=== PATIENT | female | born 1980 | race Two or more races ===

== ENCOUNTER 2017-03-20 22:08 | Emergency (ER) | payer OTHER ==
--- NOTE | 2017-03-20 22:11 | EDPHY ---
H & P HPI/ROS: HPI CHIEF COMPLAINT: Dizziness, lightheadedness, numbness tingling in hands and around mouth HISTORY OF PRESENT ILLNESS: This patient is a 36-year-old female she is otherwise healthy she does not take any daily medications she presents emergency room by ambulance stating that she felt dizzy. It is improved since this started approximately over 3 hours ago or 7:30 p.m. Patient states she was getting ready to go to the movies this evening and she was running around the house she is putting on makeup she started feel little dizzy. She describes as room spinning. She also endorses some lightheadedness. She also noticed some numbness and tingling in her bilateral hands and around her mouth. Denies any chest pain. Denies shortness of breath. Did have nausea with this as well. No diaphoresis. She states since arriving to the emergency room she is feeling better. She denies syncope. Denies chest pain. Past Medical History: No significant medical Past Surgical History: No significant surgical history Social History: Denies daily use of drugs alcohol tobacco. Family History: Contributory ROS REVIEW OF SYSTEMS: A comprehensive 10 point review of systems is otherwise negative aside from elements mentioned in the history of present illness. Exam Constitutional appears well nontoxic, triage nursing summary reviewed, vital signs reviewed, awake/alert. Eyes normal conjunctivae and sclera, EOMI, PERRLA. HENT normal inspection, atraumatic, moist mucus membranes, no epistaxis, neck supple/ no meningismus, no raccoon eyes. Respiratory clear to auscultation bilaterally, normal breath sounds, no respiratory distress, no wheezing. Cardiovascular rate normal, regular rhythm, no murmur, no edema, distal pulses normal. Gastrointestinal soft, non-tender, no rebound, no guarding, normal bowel sounds, no distension, no pulsatile mass. Genitourinary no CVA tenderness. Musculoskeletal no midline vertebral tenderness, full range of motion, no calf swelling, no tenderness of extremities, no meningismus, good pulses, neurovascularly intact. Skin pink, warm, & dry, no rash, skin atraumatic. Neurologic normal neurological exam no focal neuro deficit on exam, awake, alert and oriented x 3, AAOx3, moves all 4 extremities equally, motor intact, sensory intact, CN II-XII intact, normal cerebellar, normal vision, normal speech. Psychiatric normal mood/affect. Heme/Lymph/Immune no lymphadenopathy. Differential Diagnosis: Includes but is not limited to in a particular order, cardiac arrhythmia, cardiac ischemia, dehydration, electrolyte disturbance, infection, vertigo, stroke Medical Decision Making: Plan for this patient full quality assurance monitor final, EKG, IV establishment, blood draw, x-ray, vital signs gentle IV hydration, check electrolytes, urinalysis, TSH, chest x-ray. Re-evaluation: EKG interpretation by me on record in [employer] system. Impression time of EKG 2233, sinus rhythm rate of 65 I am nonspecific T-wave abnormalities in V1 V2 V3. Otherwise I do not appreciate acute ischemic change. 224: Patient ambulated to the bathroom was extremely dizzy. [place] off balance. I did re-evaluate her at this time she is feeling better. CT scan of the head without contrast and angiogram head and neck with IV contrast for acute dizziness The results of the study are negative for thrombus , dissection. Negative scans.. The study was read by Dr. Barroso I viewed the images myself on the PACS system. EKG interpretation by me on record in [employer] system. Impression this is a repeat EKG time of EKG 0021 T-wave abnormality noted V1 V2. Less so in V3. Otherwise unremarkable EKG. Similar to previous EKG. 1225: Patient is up ambulating to the bathroom with a steady gait. She feels much better after IV fluids meclizine and Valium. She has no chest pain or shortness of breath/ 0115: Repeat troponin negative. 0120: I did re-evaluate this patient this time. Resting comfortably no acute distress. Patient is feeling much better she denies any dizziness lightheadedness shortness of breath or chest pain. She would like to go home I feel this is reasonable. Return precautions given. Source: Patient, EMS - Personal History Tetanus Vaccine Date: 03/13 - Medical/Surgical History Other PMH: pt had complication after at IV site, pt had 2014 - Social History Smoking Status: Former smoker Constitutional: Initial Vital Signs Temperature (C) 36.8 C 03/20/17 22:30 Heart Rate 60 03/20/17 22:30 Respiratory Rate 16 03/20/17 22:30 Blood Pressure 120/75 03/20/17 22:30 O2 Sat (%) 96 03/20/17 22:30 O2 Delivery Mode Room Air Allergies/Adverse Reactions: No Known Allergies Allergy (Verified 03/20/17 22:36) Home Medications: Medication Instructions Recorded 1 tab PO DAILY 06/27/13 IRON 1 tab PO DAILY 03/04/16 Ibuprofen [Motrin (*)] 600 mg PO Q6HRS PRN #30 tab 03/06/16 Meclizine HCl [Meclizine HCl 25 mg 25 mg PO BID #10 tab 03/21/17 (RX,OTC)] Medical Decision Making - Diagnostics Imaging Results: Imaging Impressions Chest X-Ray 03/20/17 22:16 Impression: No acute findings in the chest. Head CT 03/20/17 22:41 Impression: No acute intracranial findings. Findings discussed with Cash Wilkes MD 03/20/2017 at 23:35. Head CTA 03/20/17 22:41 Impression: 1. Normal CT angiogram of the head and neck. 2. Tiny pleural effusions. 3. Additional findings as above. Stenoses are calculated using [place] Symptomatic Carotid Endarterectomy Trial (NASCET) criteria. Findings discussed with Cash Wilkes MD 03/20/2017 at 23:35. Neck CTA 03/20/17 22:41 Impression: 1. Normal CT angiogram of the head and neck. 2. Tiny pleural effusions. 3. Additional findings as above. Stenoses are calculated using [place] Symptomatic Carotid Endarterectomy Trial (NASCET) criteria. Findings discussed with Cash Wilkes MD 03/20/2017 at 23:35. - Data Points Laboratory Results: Laboratory Results 03/20/17 22:00 03/20/17 22:00 03/21/17 03/20/17 03/20/17 00:11 22:31 22:00 WBC RBC Hgb Hct MCV MCH MCHC RDW Plt Count MPV Neut % (Auto) Lymph % (Auto) [place] % (Auto) Eos % (Auto) Baso % (Auto) Nucleat RBC Rel Count Absolute Neuts (auto) Absolute Lymphs (auto) Absolute Monos (auto) Absolute Eos (auto) Absolute Basos (auto) Absolute Nucleated RBC Immature Gran % Immature Gran # PT INR APTT D-Dimer Sodium Potassium Chloride Carbon Dioxide Anion Gap BUN Creatinine Estimated GFR Glucose Calcium Magnesium Total Bilirubin Conjugated Bilirubin Unconjugated Bilirubin AST ALT Alkaline Phosphatase Creatine Kinase CK-MB (CK-2) Fraction Troponin I < 0.012 ng/mL ng/mL (0.000-0.034) NT-Pro-B Natriuret Pep Total Protein Albumin Lipase TSH Beta HCG, Qual NEGATIVE Urine Color YELLOW Urine Appearance HAZY Urine pH 9.0 H (5.0-7.5) Ur Specific [place] 1.018 (1.002-1.030) Urine Protein 1+ H (NEGATIVE) Urine Ketones NEGATIVE (NEGATIVE) Urine Blood 2+ H (NEGATIVE) Urine Nitrate NEGATIVE (NEGATIVE) Urine Bilirubin NEGATIVE (NEGATIVE) Urine Urobilinogen NEGATIVE EU EU (0.2-1.0) Ur Leukocyte Esterase NEGATIVE (NEGATIVE) Urine RBC 15-25 /hpf H /hpf (0-3) Urine WBC 3-5 /hpf H /hpf (0-3) Ur Epithelial Cells TRACE /lpf /lpf (NONE-1+) Urine Mucus TRACE /lpf /lpf (NONE-1+) Urine Glucose NEGATIVE (NEGATIVE) Ethyl Alcohol 03/20/17 03/20/17 03/20/17 22:00 22:00 22:00 WBC 6.48 10^3/uL 10^3/uL (3.80-9.50) RBC 4.61 10^6/uL 10^6/uL (4.18-5.33) Hgb 13.5 g/dL g/dL (12.6-16.3) Hct 39.6 % % (38.0-47.0) MCV 85.9 fL fL (81.5-99.8) MCH 29.3 pg pg (27.9-34.1) MCHC 34.1 g/dL g/dL (32.4-36.7) RDW 13.7 % % (11.5-15.2) Plt Count 343 10^3/uL 10^3/uL (150-400) MPV 9.7 fL fL (8.7-11.7) Neut % (Auto) 46.1 % % (39.3-74.2) Lymph % (Auto) 44.6 % % (15.0-45.0) [place] % (Auto) 6.5 % % (4.5-13.0) Eos % (Auto) 2.0 % % (0.6-7.6) Baso % (Auto) 0.6 % % (0.3-1.7) Nucleat RBC Rel Count 0.0 % % (0.0-0.2) Absolute Neuts (auto) 2.99 10^3/uL 10^3/uL (1.70-6.50) Absolute Lymphs (auto) 2.89 10^3/uL 10^3/uL (1.00-3.00) Absolute Monos (auto) 0.42 10^3/uL 10^3/uL (0.30-0.80) Absolute Eos (auto) 0.13 10^3/uL 10^3/uL (0.03-0.40) Absolute Basos (auto) 0.04 10^3/uL 10^3/uL (0.02-0.10) Absolute Nucleated RBC 0.00 10^3/uL 10^3/uL (0-0.01) Immature Gran % 0.2 % % (0.0-1.1) Immature Gran # 0.01 10^3/uL 10^3/uL (0.00-0.10) PT 12.8 SEC SEC (12.0-15.0) INR 0.97 (0.83-1.16) APTT 28.6 SEC SEC (23.0-38.0) D-Dimer 0.31 ug/mLFEU ug/mLFEU (0.00-0.50) Sodium 143 mEq/L mEq/L (134-144) Potassium 3.7 mEq/L mEq/L (3.5-5.2) Chloride 102 mEq/L mEq/L (97-110) Carbon Dioxide 26 mEq/l mEq/l (22-31) Anion Gap 15 mEq/L mEq/L (8-16) BUN 15 mg/dL mg/dL (7-23) Creatinine 0.7 mg/dL mg/dL (0.6-1.0) Estimated GFR > 60 Glucose 103 mg/dL H mg/dL (70-100) Calcium 10.1 mg/dL mg/dL (8.5-10.4) Magnesium 2.2 mg/dL mg/dL (1.6-2.3) Total Bilirubin 1.9 mg/dL H mg/dL (0.1-1.4) Conjugated Bilirubin 0.2 mg/dL mg/dL (0.0-0.5) Unconjugated Bilirubin 1.7 mg/dL H mg/dL (0.0-1.1) AST 16 IU/L IU/L (14-46) ALT 25 IU/L IU/L (9-52) Alkaline Phosphatase 62 IU/L IU/L (38-126) Creatine Kinase 73 IU/L IU/L (0-156) CK-MB (CK-2) Fraction 0.53 ng/mL ng/mL (0.00-3.19) Troponin I < 0.012 ng/mL ng/mL (0.000-0.034) NT-Pro-B Natriuret Pep 47 pg/mL pg/mL (0-125) Total Protein 7.4 g/dL g/dL (6.3-8.2) Albumin 4.6 g/dL g/dL (3.5-5.0) Lipase 78 IU/L IU/L (23-300) TSH 3.110 uIU/mL uIU/mL (0.465-4.680) Beta HCG, Qual Urine Color Urine Appearance Urine pH Ur Specific [place] Urine Protein Urine Ketones Urine Blood Urine Nitrate Urine Bilirubin Urine Urobilinogen Ur Leukocyte Esterase Urine RBC Urine WBC Ur Epithelial Cells Urine Mucus Urine Glucose Ethyl Alcohol < 10 mg/dL mg/dL (0-10) Medications Given: Discontinued Medications Diazepam (Valium Injection) 2.5 mg IVP EDNOW ONE Stop: 03/20/17 22:43 Last Admin: 03/20/17 22:51 Dose: 2.5 mg Sodium Chloride (Ns) 1,000 mls @ 0 mls/hr IV EDNOW ONE; Wide Open PRN Reason: Protocol Stop: 03/20/17 22:16 Last Admin: 03/20/17 22:26 Dose: 1,000 mls Meclizine HCl (Meclizine Hcl) 25 mg PO EDNOW ONE Stop: 03/20/17 22:43 Last Admin: 03/20/17 22:52 Dose: 25 mg Ondansetron HCl (Zofran) 4 mg IVP EDNOW ONE Stop: 03/20/17 22:21 Last Admin: 03/20/17 22:26 Dose: 4 mg Departure - Departure Disposition: Home, Routine, Self-Care Clinical Impression: Dizziness Condition: Good Instructions: Near Syncope (ED), Dizziness (ED) Additional Instructions: 1. Return emergency room immediately if he develops worsening dizziness shortness of breath or chest pain. 2. Additionally please follow up with Cardiology please call their for follow- up appointment. 3. Return if worsening symptoms questions or concerns. 4. Drink lots of fluids stay well-hydrated. Referrals: Patient,NotPresent [Unknown] - As per Instructions Shaila Escobedo MD [Medical Doctor] - As per Instructions Vitaliy Bradley MD [Medical Doctor] - As per Instructions Prescriptions: Meclizine HCl [Meclizine HCl 25 mg (RX,OTC)] 25 mg PO BID #10 tab
[2017-03-20] MEDS ORDERED: NS 1,000 ML IV ONE (22:15)
[2017-03-20] MEDS ORDERED: ONDANSETRON 4 MG/2 ML VIAL IVP ONE (22:20)
[2017-03-20 22:25] LABS: % IMMATURE GRANULYOCYTES 0.2 % (0.0-1.1); ABSOLUTE IMMATURE GRANULOCYTES 0.01 10^3/uL (0.00-0.10); ADD DIFF? NO; ADD MORPH? NO; ADD SCAN? NO; ATYPICAL LYMPHOCYTE FLAG 20 (0-99); FRAGMENT RBC FLAG 0 (0-99); HEMATOCRIT 39.6 % (38.0-47.0); HEMOGLOBIN 13.5 g/dL (12.6-16.3); LEFT SHIFT FLG 0 (0-99); LIPEMIA HEMOLYSIS FLAG 90 (0-99); MEAN CELL HEMOGLOBIN 29.3 pg (27.9-34.1); MEAN CELL HEMOGLOBIN CONCENTR. 34.1 g/dL (32.4-36.7); MEAN CELL VOLUME 85.9 fL (81.5-99.8); MEAN PLATELET VOLUME 9.7 fL (8.7-11.7); PLATELET CLUMPS FLAG 0 (0-99); PLATELET COUNT 343 10^3/uL (150-400); RED BLOOD CELL COUNT 4.61 10^6/uL (4.18-5.33); RED CELL DISTRIBUTION WIDTH 13.7 % (11.5-15.2)
[2017-03-20 22:31] LABS: APTT 28.6 SEC (23.0-38.0); INR 0.97 (0.83-1.16); PROTIME(PATIENT) 12.8 SEC (12.0-15.0)
--- NOTE | 2017-03-20 22:36 | CPEKG ---
Heart Rate: 65 RR Interval: 923 P-R Interval: 152 QRSD Interval: 86 QT Interval: 412 QTC Interval: 429 P [place]: 55 QRS [place]: 78 T Wave [place]: 65 EKG Severity - ABNORMAL ECG - EKG Impression: SINUS RHYTHM EKG Impression: NONSPECIFIC T ABNORMALITIES, ANT-LAT LEADS EKG Impression: Possible left atrial abnormality Electronically Signed By: Ignacio Hawk 27-Mar-2017 11:00:08
[2017-03-20 22:40] LABS: ALANINE AMINOTRANSFERASE 25 IU/L (9-52); ALBUMIN 4.6 g/dL (3.5-5.0); ALKALINE PHOSPHATASE 62 IU/L (38-126); ANION GAP 15 mEq/L (8-16); ASPARTATE AMINOTRANSFERASE 16 IU/L (14-46); BILIRUBIN,TOTAL 1.9 mg/dL (0.1-1.4); BILIRUBIN-CONJUGATED 0.2 mg/dL (0.0-0.5); BILIRUBIN-UNCONJUGATED 1.7 mg/dL (0.0-1.1); CALCIUM 10.1 mg/dL (8.5-10.4); CARBON DIOXIDE 26 mEq/l (22-31); CHLORIDE 102 mEq/L (97-110); CREATININE 0.7 mg/dL (0.6-1.0); ETHANOL SERUM < 10 mg/dL (0-10); GLOMERULAR FILTRATION RATE > 60; GLUCOSE 103 mg/dL (70-100); MAGNESIUM 2.2 mg/dL (1.6-2.3); POTASSIUM 3.7 mEq/L (3.5-5.2); SODIUM 143 mEq/L (134-144); TOTAL PROTEIN 7.4 g/dL (6.3-8.2)
[2017-03-20 22:41] LABS: COLOR YELLOW; LEUKOCYTE ESTERASE,URINE NEGATIVE (NEGATIVE); NITRITE,URINE NEGATIVE (NEGATIVE)
[2017-03-20] MEDS ORDERED: DIAZEPAM 10 MG/2 ML SYR IVP ONE (22:42)
[2017-03-20] MEDS ORDERED: MECLIZINE HCL 25 MG TAB PO ONE (22:42)
[2017-03-20] MEDS ORDERED: IOPAMIDOL (ISOVUE 370) 100 ML BTL IV ONE (22:46)
[2017-03-20 22:47] LABS: MUCUS TRACE /lpf (NONE-1+); RBC,URINE 15-25 /hpf (0-3)
[2017-03-20 22:51] LABS: CREATINE KINASE-MB FRACTION 0.53 ng/mL (0.00-3.19); TROPONIN I < 0.012 ng/mL (0.000-0.034)
--- NOTE | 2017-03-21 00:26 | CPEKG ---
Heart Rate: 61 RR Interval: 984 P-R Interval: 144 QRSD Interval: 86 QT Interval: 436 QTC Interval: 440 P [place]: 67 QRS [place]: 71 T Wave [place]: 61 EKG Severity - BORDERLINE ECG - EKG Impression: SINUS RHYTHM EKG Impression: BORDERLINE T ABNORMALITIES, ANT-LAT LEADS EKG Impression: R=S In V1.I suspect this is related to lead placement.Otherwise, no significant EKG Impression: change from March 20, 2017 Electronically Signed By: Ignacio Hawk 27-Mar-2017 10:59:42
[2017-03-21 00:33] VITALS: TEMP 98.1
[2017-03-21 01:36] VITALS: BP 98/67; PULSE 71; RESP 20; O2SAT 95
== END 2017-03-21 01:36 | disposition home or self-care (01) ==
LOC: EDUNIT#
DX: R42 Dizziness and giddiness (principal); E86.9 Volume depletion, unspecified; Z87.891 Personal history of nicotine dependence
CPT/HCPCS: 96374; G0480; J2405; Q9967